=== PATIENT | male | born 1990 | race African-American/Black ===

== ENCOUNTER 2024-07-30 13:51 | Emergency (ER) | payer OTHER ==
[2024-07-30] MEDS ORDERED: NA CHLORIDE 0.9% 1,000 ML ONE (14:07)
[2024-07-30 14:33] LABS: Absolute Basophils 0.1 K/uL (0-0.5); Absolute Eosinophils 0.1 K/uL (0-0.5); Absolute Neutrophil 9.5 K/uL (1.8-8.0); Basophils % 0.6 % (0-1.3); Eosinophils % 0.6 % (0-4.4); Hematocrit 41.6 % (39.6-49.0); Hemoglobin 14.6 g/dL (13.6-17.9); Lymphocytes % 22.2 % (15.3-44.8); MCHC 35.1 g/dL (32.0-36.0); MCV 88.5 fL (80-100); MPV 7.1 fL (7.6-11.3); Neutrophils % 69.6 % (41.7-73.7); Platelets 403 thou/uL (152-406); Red Cell Distribution Width 13.3 % (12.1-15.2)
[2024-07-30 14:48] LABS: Albumin 3.6 g/dL (3.4-5.0); Albumin/Globulin Ratio 0.9 (1.1-1.8); Anion Gap 6.8 mEq/L (5.0-15.0); Bilirubin Total 0.4 mg/dL (0.2-1.0); Potassium 3.8 mEq/L (3.5-5.1); Protein, Total 7.6 g/dL (6.4-8.2)
--- NOTE | 2024-07-30 15:12 | RAD REPORT ---
EXAM: Chest Single View HISTORY: DYSPNEA COMPARISON: None. FINDINGS: LUNGS/PLEURA: The lungs are clear. No pleural effusions or pneumothorax. No pulmonary edema. MEDIASTINUM: The mediastinal silhouette is within normal limits. CARDIAC: The cardiac silhouette is within normal limits. UPPER ABDOMEN: No significant abnormality. BONES: No acute abnormality. LINES/TUBES/OTHER: N/A IMPRESSION: No evidence of acute cardiopulmonary disease.
--- NOTE | 2024-07-30 15:26 | ER ---
[facility]urse's Notes [facility] Name: Neil Paul Age: 33 yrs Sex: Male : 1990 Arrival Date: 07/30/2024 Time: 13:51 Bed 16 Private MD: Diagnosis: Other malaise Presentation: 07/30 14:06 Chief complaint: Patient states: reports intermittent sob, pressure in ears, night me1 sweats for the past few weeks. States he has vomited once in the morning yesterday and today. States, "I just dont feel right". Coronavirus screen: Vaccine status: Patient reports being unvaccinated. Ebola Screen: No symptoms or risks identified at this time. Initial Sepsis Screen: Does the patient meet any 2 criteria? No. Patient's initial sepsis screen is negative. Does the patient have a suspected source of infection? No. Patient's initial sepsis screen is negative. Risk Assessment: Do you want to hurt yourself or someone else? Patient reports no desire to harm self or others. Onset of symptoms is unknown. 14:06 [place] [facility] [place] Acuity: FELICE 3 me1 Historical: - Allergies: 14:08 No Known Allergies; me1 - PMHx: 14:08 None; me1 - PSHx: 14:08 Repair of inguinal hernia; me1 - Immunization history:: Adult Immunizations unknown. - Infectious Disease History:: Denies. - Social history:: Smoking status: Patient/guardian denies using tobacco, Stopped _ months ago 2. Screenin:23 [facility] ED Fall Risk Assessment (Adult) History of falling in the last 3 months, mb9 including since admission No falls in past 3 months (0 pts) Confusion or Disorientation No (0 pts) Intoxicated or Sedated No (0 pts) Impaired Gait No (0 pts) Mobility Assist Device Used No (0 pt) Altered Elimination No (0 pt) Score/Fall Risk Level 0 - 2 = Low Risk Oriented to surroundings, Maintained a safe environment, Educated pt \\T\\ family on fall prevention, incl call for assistance when getting out of bed. Abuse screen: Denies threats or abuse. Nutritional screening: No deficits noted. Tuberculosis screening: No symptoms or risk factors identified. Assessment: 14:23 General: Appears in no apparent distress. Behavior is calm, cooperative. Pain: Denies mb9 pain. Neuro: Caceres Agitation-Sedation Scale (RASS): 0 - Alert and Calm Level of Consciousness is awake, alert, obeys commands, Oriented to person, place, time, situation, Appropriate for age Reports dizziness. Cardiovascular: Patient's skin is warm and dry. Respiratory: Airway is patent Respiratory effort is even, unlabored, Respiratory pattern is regular, symmetrical. Respiratory: Reports shortness of breath. GI: Abdomen is round non-distended, Bowel sounds present X 4 quads. Abd is soft and non tender X 4 quads. : No signs and/or symptoms were reported regarding the genitourinary system. EENT: No signs and/or symptoms were reported regarding the EENT system. Derm: Skin is pink, warm \\T\\ dry. Musculoskeletal: Range of motion: intact in all extremities. 15:36 Reassessment: No changes from previously documented assessment. Patient and/or family mb9 updated on plan of care and expected duration. Pain level reassessed. Patient is alert, oriented x 3, equal unlabored respirations, skin warm/dry/pink. Vital Signs: 14:06 BP 177 / 83; Pulse 74; Resp 18; Temp 97.7; Pulse Ox 100% ; Weight 145.15 kg; Height 6 me1 ft. 3 in. ; Pain 0/10; 15:36 BP 175 / 84; Pulse 75; Resp 16; Pulse Ox 100% on R/A; mb9 14:06 Body Mass Index 40.00 (145.15 kg, 190.5 cm) me1 14:06 Pain Scale: Adult md1 ED Course: 13:52 Patient arrived in ED. mr 13:58 Stephania Villela, [facility]. kb 13:58 Drake Whitlock MD is Attending Physician. kb 14:04 Cee Og RN is Primary Nurse. mb9 14:08 Triage completed. me1 14:08 Arm band placed on Patient placed in an exam room. me1 14:20 Initial lab(s) drawn, by me, sent to lab. EKG done, by ED staff, reviewed by Stephania MARTE. Inserted saline lock: 20 gauge in left antecubital area, using aseptic technique. Blood collected. Flushed with 10 mL NS. 14:23 Placed in gown. Bed in low position. Call light in reach. Side rails up X 1. Provided mb9 Education on: press call light if needing anything. Client placed on continuous cardiac and pulse oximetry monitoring. NIBP monitoring applied. 14:24 No provider procedures requiring assistance completed. mb9 14:34 Chest Single View XRAY In Process Unspecified. EDMS 15:36 IV discontinued, intact, bleeding controlled, No redness/swelling at site. Pressure mb9 dressing applied. Administered Medications: 14:20 Drug: NS 0.9% IV 1000 ml IV at 1000 ml once; to be given as a bolus over 60 minutes mb9 Route: IV; Rate: 1000 ml; Site: left antecubital; 15:36 Follow up: Response: No adverse reaction; IV Status: Completed infusion mb9 Medication: 14:24 VIS not applicable for this client. mb9 Outcome: 15:26 Discharge ordered by . yunier 15:36 Discharged to home ambulatory, mb9 15:36 Condition: stable 15:36 Discharge instructions given to patient, Instructed on discharge instructions, follow up and referral plans. Demonstrated understanding of instructions, follow-up care, 15:39 Patient left the ED. iw Signatures: Dispatcher [employer] EDMS Stephania Villela, BIOPHARMACEUTICAL REP-C BIOPHARMACEUTICAL REP-Ckb Cee Medina, Reg Reg Hannah Lutz, RN Cee Douglas, RN RN mb9 Elizabeth Syed, RN RN me1
--- NOTE | 2024-07-30 15:26 | EDPHYS ---
Physician Documentation [facility] Name: Neil Paul Age: 33 yrs Sex: Male : 1990 Arrival Date: 07/30/2024 Time: 13:51 Bed 16 Private MD: ED Physician Drake Whitlock HPI: 07/30 14:31 This 33 yrs old Black Male presents to ER via Ambulatory with complaints of Body aches. kb 14:32 Pt is a 33 year old male who presents for lightheadedness, shortness of breath and kb "getting hot" that has been intermittent for a few weeks. Denies cough, congestion, fever. States he had an episode of vomiting this morning upon waking. States he went to work and got rained out so he decided to go ahead and come get checked out. States he has no symptoms at this time. . Historical: - Allergies: 14:08 No Known Allergies; me1 - PMHx: 14:08 None; me1 - PSHx: 14:08 Repair of inguinal hernia; me1 - Immunization history:: Adult Immunizations unknown. - Infectious Disease History:: Denies. - Social history:: Smoking status: Patient/guardian denies using tobacco, Stopped _ months ago 2. ROS: 14:32 Constitutional: As per HPI kb Exam: 14:21 Constitutional: This is a well developed, well nourished patient who is awake, alert, kb and in no acute distress. Head/Face: Normocephalic, atraumatic. ENT: Moist Mucous membranes Cardiovascular: Regular rate Respiratory: Respirations even and unlabored. No increased work of breathing. Talking in full sentences Abdomen/GI: Soft, non-tender. No distention Skin: Warm, dry with normal turgor. Normal color. MS/ Extremity: Pulses equal, no cyanosis. Neurovascular intact. Full, normal range of motion. Neuro: Awake and alert, GCS 15, oriented to person, place, time, and situation. 14:21 ECG was reviewed by the Attending Physician. Vital Signs: 14:06 BP 177 / 83; Pulse 74; Resp 18; Temp 97.7; Pulse Ox 100% ; Weight 145.15 kg; Height 6 me1 ft. 3 in. ; Pain 0/10; 15:36 BP 175 / 84; Pulse 75; Resp 16; Pulse Ox 100% on R/A; mb9 14:06 Body Mass Index 40.00 (145.15 kg, 190.5 cm) me1 14:06 Pain Scale: Adult me1 MDM: 13:59 Medical Screening Exam initiated kb 14:34 Differential diagnosis: dehydration, abnormal electrolytes. Data reviewed: vital signs, kb nurses notes. 15:25 Counseling: I had a detailed discussion with the patient and/or guardian regarding the kb historical points, exam findings, and any diagnostic results supporting the discharge/admit diagnosis, lab results, radiology results, the need for outpatient follow up, a family practitioner, to return to the emergency department if symptoms worsen or persist or if there are any questions or concerns that arise at home. Special discussion: I have referred the patient to see his PCP for further evaluation of high blood pressure. ED course: Pt remains asymptomatic. Educated to follow up with PCP and to keep BP log.. 07/30 14:10 Order name: CBC with Diff; Complete Time: 14:36 kb 07/30 14:10 Order name: CMP; Complete Time: 14:48 kb 07/30 14:10 Order name: Chest Single View XRAY; Complete Time: 15:16 kb 07/30 14:10 Order name: IV Start; Complete Time: 14:20 kb 07/30 14:10 Order name: EKG - Nurse/Tech; Complete Time: 14:20 kb EC:21 Rate is 66 beats/min. Rhythm is regular. QRS [place] is Normal. CO interval is normal at kb 194 msec. QRS interval is normal at 90 msec. QT interval is normal at 400 msec. Administered Medications: 14:20 Drug: NS 0.9% IV 1000 ml IV at 1000 ml once; to be given as a bolus over 60 minutes mb9 Route: IV; Rate: 1000 ml; Site: left antecubital; 15:36 Follow up: Response: No adverse reaction; IV Status: Completed infusion mb9 Disposition: 19:24 Co-signature as Attending Physician, Drake Whitlock MD I reviewed the patient's care rn provided by the Advanced Practice Provider and agree with the diagnosis and treatment plan. Disposition Summary: 07/30/24 15:26 Discharge Ordered Notes: Location: Home Condition: Stable kb Diagnosis - Other malaise kb Followup: kb - With: Emergency Department - When: As needed - Reason: Worsening of condition Followup: kb - With: Private Physician - When: 2 - 3 days - Reason: Recheck today's complaints, Continuance of care, Re-evaluation by your physician Discharge Instructions: - Discharge Summary Sheet kb - Shortness of Breath, Adult, [id number] kb - Weakness, [id number] kb Forms: - Medication Reconciliation Form kb - Antibiotic Education kb - Prescription Opioid Use kb - Patient Portal Instructions kb - Leadership Thank You Letter kb Signatures: Dispatcher [employer] EDStephania Slulivan FNP-C [employer]ENT-Ckb Drake Whitlock MD MD rn Wilkerson, Cee Caicedo RN RN mb9 Elizabeth Syed RN RN me1 Corrections: (The following items were deleted from the chart) 14:11 14:11 Chest Single View+[email or web address].[email or web address] ordered. [facility]
[2024-07-30 18:47] VITALS: TEMP 97.7; O2SAT 100
[2024-07-30 18:49] VITALS: BP 175/84
== END 2024-07-30 15:39 | disposition home or self-care (01) ==
LOC: ER 13:51
DX: R53.81 Other malaise (principal); R06.02 Shortness of breath; R42 Dizziness and giddiness
CPT/HCPCS: 93005; 85025; 36415; 80053; 71045; 96360; 99284; J7030